=== PATIENT | female | born 2000 | race Native Hawaiian/Other Pacific Islander ===

== ENCOUNTER 2021-12-17 23:50 | Emergency (ER) | payer OTHER ==
[~2021-12-17] VITALS: Ht 147.3 cm; Wt 102.1 kg
[2021-12-18 00:28] LABS: POTASSIUM 3.5 mmol/L (3.6-5.2); SODIUM 139 mmol/L (136-145)
[2021-12-18 00:43] LABS: PARTIAL THROMBOPLASTIN TIME 24.5 SECONDS (24.5-33.6)
[2021-12-18 00:46] LABS: PLATELET COUNT 213 K/uL (152-353)
[2021-12-18 01:33] VITALS: BP 116/64; TEMP 97.8
== END 2021-12-18 01:33 ==
LOC: ED 23:50 → EDBD 23:50 → ED 12-18 01:33
PROVIDERS: Hospitalist
DX: N92.5 Other specified irregular menstruation (principal); A59.8 Trichomoniasis of other sites; F15.10 Other stimulant abuse, uncomplicated
CPT/HCPCS: 36415; 80053; 80307; 80320; 81000; 84702; 85027; 85610; 85730; 99283

== ENCOUNTER 2022-01-13 19:05 | Emergency (ER) | payer OTHER ==
[~2022-01-13] VITALS: Ht 154.9 cm; Wt 102.1 kg
[2022-01-13 19:25] VITALS: BP 128/82; TEMP 98.7
== END 2022-01-13 19:47 | disposition home or self-care (01) ==
LOC: ED 19:05
DX: Z53.21 Procedure and treatment not carried out due to patient leaving prior to being seen by health care provider (principal)